=== PATIENT | male | born 1960 | race Caucasian/White ===

== ENCOUNTER 2018-12-17 16:15 | Observation (INO) | payer OTHER ==
[~2018-12-17] VITALS: Ht 172.7 cm; Wt 80.7 kg
--- NOTE | ~2018-12-17 | CON ---
[address] [address] CONSULTATION Name: ILIR QUINONES Room: [address] [place]#: [id number] Admission: 12/17/18 Attend Phys: Ric Richter MD Discharge: Date of : 64 Report #: [id number] THIS REPORT FOR: //name// CC: NANCY physician/PCP Ric Richter DATE OF SERVICE: 12/18/2018 HISTORY OF PRESENT ILLNESS: This is a 58-year-old male patient who was evaluated by me to determine any neurological etiology for the patient's syncope. I talked to Dr. Alston and he basically passed out the ambulance came after about 20 minutes according to him, but that time, he was up and back to his baseline. His blood sugar earlier during the day was 500. When they came in, it was 156, but that time, the patient was conscious and alert and in fact walked to the ambulance. REVIEW OF SYSTEMS: Indicate that he has pretty significant cardiac problems. He is a diabetic. He had multiple stents put in. His blood sugar fluctuates a lot. He indicates that even his vital signs fluctuate. Apparently, his blood pressure was low when it happened. He has trouble with vision in the right eye, which is his baseline. A 14-point review of system was carried out. He indicated that he does not have any history of stroke. He denies any ENT, respiratory, GI, , musculoskeletal, constitutional, dermatological, hematological, psychiatric, throat, allergic symptom associated with present symptomatology. He has baseline problem with the psychiatric issues. He is already on statin and aspirin. PAST MEDICAL HISTORY: Positive for cardiac problems. FAMILY HISTORY: Positive for cardiac problems. In fact, his father has stents put in this hospital a few days ago. SOCIAL HISTORY: He indicates he still smokes. PHYSICAL EXAMINATION: Indicates he is alert, responsive, able to follow simple and complex command. Cranial nerve examination 2-12 looks unremarkable except for his baseline vision problem. His strength, sensation, reflexes and tone is symmetrical, but his reflexes are diminished in the lower extremities as expected with diabetes. His pulses are somewhat difficult to feel. I could not look at the fundus. There is no meningeal sign. There is no carotid bruit. He is moderately built individual who does not have any dysmorphic features of eyes, ears and face. His cardiac examinations appear unremarkable. No respiratory difficulty was noticed. Blood pressure is 153/93, respirations 16, pulse is 81, temperature is 97.9. [place] [address] CONSULTATION Name: ILIR QUINONES Room: [address] MJamesR.#: [id number] Admission: 12/17/18 Attend Phys: Ric Richter MD Discharge: Date of : 64 Report #: [id number] LABORATORY DATA: His white count is 8.2 and his GFR is 48. He had an MRI of the brain and MRA of the head and neck done. That does not appear to be showing any definite abnormality. 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 IMPRESSION: Episode, he has, was most likely related to either uncontrolled blood sugar or change in his other vital sign. Neurological etiology is unlikely in this patient. I will do an EEG to further rule out any other etiology. If that is unremarkable, the emphasis should continue to be on determining systemic cause for the patient's symptom and following up on that. I discussed all of it with the patient and he understands it and he wants to follow this plan. By: 1013 1254Pdinora Rust MD /nt
--- NOTE | ~2018-12-17 | EEG ---
[address] [address] EEG STUDY REPORT Name: ILIR QUINONES Room: [address] [place]#: [id number] Admission: 12/17/18 Attend Phys: Ric Richter MD Discharge: Date of : 64 Report #: [id number] THIS REPORT FOR: //name// CC: FAM physician/PCP Ric Richter DATE OF SERVICE: 12/18/2018 This patient had an episode of syncope. This patient is being evaluated for syncope. EEG was done by placing the electrode by standard 10-20 system of electrode placement. Both referential and sequential montages were used for recording. Background activity in this patient's EEG is about 8-9 Hz and 30 microvolts. The patient became drowsy that is associated with bilateral slowing and vertex sharp waves. Photic stimulation is unremarkable. Throughout the record, no active epileptiform activity was noticed. IMPRESSION: This patient's electroencephalogram is intermixed with theta range slowing on both sides. That is a nonspecific finding, which can occur with drowsiness, effect of psychotropic medication, dementia, etc. No active epileptiform activity was noticed during this record. By: 1422 1434Pdinora Rust MD /nt
[~2018-12-17 16:15] MED LIST: CARVEDILOL12.5 MG PO; CELEBREX 200 M200 M1 PO; CYMBALTA60 MG PO; FELDENE20 MG PO; GABAPENTIN100 MG PO; HUMALOG100 UNIT/1 SQ; IBUPROFEN 800800 M1 PO; LAMICTAL PO; LAMICTAL XR300 MG PO; LAMOTRIGINE150 MG PO; LANTUS SQ; LIDODERM; LIDODERM 5%1 PATCH TOP; LIPITOR40 MG PO; LISINOPRIL20 MG PO; LITHIUM PO; NEURONTIN 300300 M1 PO; NEURONTIN 400400 M1 PO; NUCYNTA50 MG PO; ROBAXIN 750 MG750 M1 PO; SYNTHROID175 MCG PO; TRAZODONE 150150 M1 PO; ULTRAM 50MG TAB50 MG PO; ZIPSOR25 MG PO; neurontin PO
[2018-12-17 16:18] VITALS: BP 106/67
[2018-12-17 17:03] LABS: URINE BILIRUBIN NEGATIVE (Negative); URINE BLOOD NEGATIVE (Negative); URINE CLARITY CLEAR; URINE COLOR YELLOW; URINE GLUCOSE-RANDOM 3+ (Negative); URINE KETONES NEGATIVE (Negative); URINE LEUKOCYTES-REFLEX NEGATIVE (Negative); URINE NITRITE-REFLEX NEGATIVE (Negative); URINE PROTEIN TRACE (Negative); URINE SPECIFIC GRAVITY 1.015 (1.005-1.030); URINE UROBILINOGEN 0.2 E.U./dl (0.2-1.0)
[2018-12-17 17:05] LABS: BE -1.6 mmol/L (-2 to +3); PCO2 38.1 mmHg (35.0-45.0); PO2 87.8 mmHg (75.0-100.0); pH 7.396 (7.340-7.450)
[2018-12-17 17:25] LABS: ABSOLUTE BASOPHILS 0.1 thou/uL (0.0-0.2); ABSOLUTE EOSINOPHILS 0.5 thou/uL (0.0-0.7); ABSOLUTE LYMPHOCYTES 2.5 thou/uL (0.8-5.3); ABSOLUTE MONOCYTES 0.4 thou/uL (0.0-1.2); ABSOLUTE NEUTROPHILS 4.6 thou/uL (1.6-8.1); BASOPHILS 1.4 %; HEMATOCRIT 45.2 % (42.0-52.0); LYMPHOCYTES 30.8 %; MCH 32.7 pg (26.0-34.0); MCHC 33.3 g/dL (28.0-37.0); MCV 98.3 fL (80.0-100.0); MONOCYTES 5.4 %; MPV 9.1 fl. (7.2-11.1); NUCLEATED RBCS 0 /100WBC; PLATELET COUNT* 314 thou/uL (150-400); POLYS 56.4 %; RDW-CV 13.7 % (10.5-14.5); WBC 8.2 thou/uL (4.0-11.0)
[2018-12-17 17:33] LABS: CALCIUM 9.7 mg/dL (8.5-10.1); CREATININE 1.5 mg/dL (0.6-1.3); POTASSIUM 3.5 mmol/L (3.5-5.1)
[2018-12-17 17:37] LABS: ALBUMIN 4.1 g/dL (3.4-5.0); MAGNESIUM 2.1 mg/dL (1.8-2.4); TOTAL BILIRUBIN 0.6 mg/dL (<0.1-1.0); TOTAL PROTEIN 7.8 g/dL (6.4-8.2)
[2018-12-17 18:40] LABS: PROTIME 10.1 Seconds (9.20-11.50)
[2018-12-17 18:47] VITALS: BP 114/69
[2018-12-17 18:50] VITALS: BP 117/71
[2018-12-17 18:53] VITALS: BP 114/69
--- NOTE | 2018-12-17 19:13 | NUR ---
RECEIVED REPORT FROM ER AT 1850. AOX4, SBA, O2 SAT 90'S RA.TELE INPLACED, TRACING SINUS DARELL. GET SITUATED TO ROOM. FOR ACCU CHECK. VSS, GIVE REPORT TO AMISHA RN. CALL LIGHT WITHIN REACH. WILL CONTINUE TO MONITOR.
[2018-12-17 19:50] VITALS: BP 126/72
[2018-12-17 23:26] VITALS: BP 162/91
[2018-12-17] MEDS ORDERED: PLAVIX 75 MG TA75 M1 PO (23:31)
[2018-12-18 04:00] VITALS: BP 170/90
[2018-12-18 05:00] VITALS: BP 153/83
[2018-12-18] MEDS ORDERED: SYNTHROID200 MCG PO (06:21)
[2018-12-18] MEDS ORDERED: HUMALOG100 UNIT/1 SUBQ (06:23)
[2018-12-18] MEDS ORDERED: LITHIUM CARBON300 M6 PO (06:24)
[2018-12-18] MEDS ORDERED: COREG6.25 MG PO (06:25)
[2018-12-18] MEDS ORDERED: HYDROXYZINE HCL25 M1 PO (06:26)
--- NOTE | 2018-12-18 06:35 | NUR ---
NO ACUTE CHANGES OVERNIGHT. PATIENT'S HEADACHE RELIEVED WITH ACETAMINOPHEN. PATIENT DENIES LIGHTHEADEDNESS OR DIZZINESS. PATIENT DENIES CONCERNS OR QUESTIONS AT THIS TIME. MEDICATIONS RECONCILLED WITH [facility] AND UPDATED IN SYSTEM. PER DR. SCHMID, HOME MEDICATIONS WILL BE REVIEWED TODAY. CALL LIGHT WITHIN REACH
[2018-12-18 08:00] VITALS: BP 169/83
--- NOTE | 2018-12-18 08:58 | NUR ---
ASSUMED CARE OF PT THIS AM AROUND 0715- CARDAI MONITOR IN PLACE ORDERED, TRACING SR- UPON ASSESSMENT PT NOTED TO BE RESTING IN BED, WATCHING TV- PT A&O X4- CONTINENT OF BOWEL AND BLADDER- SBA WITH TRANSFERS FOR SAFETY- LCTA, RESP EVEN AND UN-LABORED- VSS, O2 SAT 96% ON RA- ABD SOFT/ROUND/NON-TENDER, BS X4 QUADS- LAST BM REPORTED 12/17/18- IV NOTED TO RIGHT AC INTACT AND SL- GOOD PO INTAKE NOTED THIS AM WITH BREAKFAST, BS MONITORED ORDERED WITH SCHEDULED AND SSI PRESCIBED- PT DENIES ANY C/O PAIN/DISCOMFORT AT THIS TIME- CALL LIGHT AND PERSONAL BELONGINGS WITH IN REACH- HOURLY ROUNDS IN PLACE R/T SAFETY/NEEDS- ALL NEEDS MET AT THIS TIME-WCTM
[2018-12-18 09:16] VITALS: BP 144/89; BP 153/93; BP 157/79
--- NOTE | 2018-12-18 10:58 | EKG ---
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 12/18/18 1058 1627 1627 Jacques Medina MD, [facility] /EPI
[2018-12-18 11:31] VITALS: BP 153/93
[2018-12-18 12:08] VITALS: BP 136/80
--- NOTE | 2018-12-18 12:54 | 2DMMODE ---
[place] [address] 2 D/M-MODE ECHOCARDIOGRAM Name: ILIR QUINONES Elkin Room: [address] [place]#: [id number] Admission: 12/17/18 Attend Phys: Ric Richter, Discharge: Date of : 64 Date of Service: 12/18/18 1254 Report #: [id number] THIS REPORT FOR: //name// APPROVED REPORT Study performed: 12/18/2018 11:14:21 EXAM: Comprehensive 2D, Doppler, and color-flow Echocardiogram Patient Location: In-Patient Room #: 224 Status: routine BSA: 1.94 HR: 51 bpm BP: 157/79 mmHg Rhythm: NSR Other Information Study Quality: Good Indications Arrhythmia Syncope 2D Dimensions IVSd: 10.02 (7-11mm) LVOT Diam: 20.29 (18-24mm) LVDd: 38.44 mm PWd: 9.14 (7-11mm) Ascending Ao: 31.81 (22-36mm) LVDs: 22.95 (25-40mm) Aortic Root: 32.57 mm Volumes Left Atrial Volume (Systole) LA ESV Index: 20.80 mL/m2 Aortic Valve AoV Peak Contreras.: 1.11 m/s AO Peak Gr.: 4.95 mmHg LVOT Max P.40 mmHg AO Mean Gr.: 2.69 mmHg LVOT Mean P.60 mmHg LVOT Max V: 0.92 m/s AO V2 VTI: 23.08 cm LVOT Mean V: 0.57 m/s KATERINE (VTI): 3.29 cm2 LVOT V1 VTI: 23.48 cm Mitral Valve E/A Ratio: 0.65 MV Decel. Time: 197.38 [place] [address] 2 D/M-MODE ECHOCARDIOGRAM Name: ILIR QUINONES Room: [address] MJamesRJames#: [id number] Admission: 12/17/18 Attend Phys: Ric Richter, Discharge: Date of : 64 Date of Service: 12/18/18 1254 Report #: [id number] MV E Max Contreras.: 0.56 m/s MV PHT: 57.24 ms MVA (PHT): 3.84 cm2 TDI E/Lateral E': 8.00 E/Medial E': 8.00 Medial E' Contreras.: 0.07 m/s Lateral E' Contreras.: 0.07 m/s Pulmonary Valve PV Peak Contreras.: 0.72 m/s PV Peak Gr.: 2.04 mmHg Tricuspid Valve RAP Estimate: 5.00 mmHg TR Peak Gr.: 16.93 mmHg RVSP: 21.00 mmHg PA Pressure: 21.00 mmHg Left Ventricle The left ventricle is normal size. There is normal LV segmental wall motion. There is normal left ventricular wall thickness. Left ventricular systolic function is normal. LVEF is 60-65%. Grade I - abnormal relaxation pattern. Right Ventricle Right ventricle is mildly dilated. The right ventricular systolic function is normal. Atria The left atrium size is normal. Right atrium is mildly dilated. Aortic Valve The aortic valve is normal in structure. No aortic regurgitation is present. There is no aortic valvular stenosis. Mitral Valve The mitral valve is normal in structure. Trace mitral regurgitation. No evidence of mitral valve stenosis. Tricuspid Valve The tricuspid valve is normal in structure. Mild tricuspid regurgitation. No pulmonary hypertension. Pulmonic Valve The pulmonary valve is normal in structure. There is no pulmonic [place] [address] 2 D/M-MODE ECHOCARDIOGRAM Name: ILIR QUINONES El[place] Room: [address]#: [id number] Admission: 12/17/18 Attend Phys: Ric Richter, Discharge: Date of : 64 Date of Service: 12/18/18 1254 Report #: [id number] Great Vessels The aortic root is normal in size. The inferior vena cava is not well visualized. Pericardium There is no pericardial effusion. <Conclusion> The left ventricle is normal size. There is normal left ventricular wall thickness. Left ventricular systolic function is normal. LVEF is 60-65%. Grade I - abnormal relaxation pattern. Right atrium is mildly dilated. Right ventricle is mildly dilated. Trace mitral regurgitation. Mild tricuspid regurgitation. No pulmonary hypertension. <ELECTRONICALLY SIGNED> By: Jacques Medina MD, FACC 12/18/18 1254 1254 1254 Jacques Medina MD, FACC /INF
--- NOTE | 2018-12-18 14:34 | NUR ---
MET WITH PT TO DISCUSS HOME SITUATION/DC PLANNING. PT LIVES WITH PARENTS. JUST MOVED BACK TO THIS AREA FROM [place]. HE IS IN PROCESS OF GETTING ALL OF HIS INFO CHANGED OVER AND IS WORKING ON GETTING HIS MEDICAID CHANGED. NUMBER TO CALL GIVEN TO PT. PT IS INDEPENDENT, USES NO EQUIPMENT. ORDER RECEIVED TO SET UP 30 DAY EVENT MONTIOR. PT PLANS TO F/U WITH DR DUMAS HE HAS SEEN HIM IN PAST, DR SCHMID UPDATED THAT PT WILL NEED TO RETURN TO PRIOR TO BEING ABLE TO GET THAT DR TO ARRANGE EVENT MONITOR. CALL TO DR DUMAS'S OFFICE, SPOKE WITH RC. WAS ABLE TO SET UP APPT AND REQUEST THE MONITOR. PT HAS APPT 12/25, FAXED CLINICAL AND ORDER FOR EVENT MONTIOR TO DR DUMAS'S OFFICE. UPDATED MISA MONTERO AND SHE WILL RELAY INFO TO PT
--- NOTE | 2018-12-18 14:41 | NUR ---
ORDERS RECIEVIED FRO OKAY TO D/C TO HOME PER WITH NEEDED FOLLOW UP WITH PCP/PYCH FOR REPEAT ECG AND LITHIUM DIRECTIONS- CM HERE TO SET UP WITH PCP PRIOR TO D/C FOR PT TO HAVE 30 DAY MONITOR PLACED OP WELL- IV TO RIGHT AC D/C'D ALONG WITH HI RANGER OPERATOR PRIOR TO D/C- D/C TEACHING/EDUCATION/NEEDED FOLLOW UP'S COMMUNICATED WITH CINDY UNDERSTANDING RECEIEVIED PER PT PRIOR TO D/C- ALL QUESTIONS AND CONCERNS ADDRESSED PRIOR TO D/C- BELONGINGS PACKED AND ACCOUNTED FOR PER PT PRIOR TO D/C- PT ESCORTED PER VOLUNTEER VIA AMB TO VEHICLE WITH BELONGINGS; FAMILY AT SIDE AT 1445- NO PROBLEMS TO NOTE AT TIME OF D/C
--- NOTE | 2018-12-18 15:34 | EKG ---
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
== END 2018-12-18 14:45 | disposition home or self-care (01) ==
LOC: M.ERS 16:15 → M.2W 18:13 → M.TBA-ER 18:13 → M.2W 18:13
PROVIDERS: Personal Emergency Response Attendant; ADMIT Internal Medicine
DX: R55 Syncope and collapse (principal); E10.649 Type 1 diabetes mellitus with hypoglycemia without coma; I45.81 Long QT syndrome; F33.9 Major depressive disorder, recurrent, unspecified; E03.9 Hypothyroidism, unspecified; I95.9 Hypotension, unspecified; E10.22 Type 1 diabetes mellitus with diabetic chronic kidney disease; N18.3 Chronic kidney disease, stage 3 (moderate); F17.210 Nicotine dependence, cigarettes, uncomplicated; I25.10 Atherosclerotic heart disease of native coronary artery without angina pectoris; Z88.5 Allergy status to narcotic agent; Z86.73 Personal history of transient ischemic attack (TIA), and cerebral infarction without residual deficits; Z88.8 Allergy status to other drugs, medicaments and biological substances; Z95.5 Presence of coronary angioplasty implant and graft; Z79.84 Long term (current) use of oral hypoglycemic drugs

== ENCOUNTER 2019-10-29 19:10 | Inpatient (IN) | payer MEDICAID ==
[~2019-10-29] VITALS: Ht 172.7 cm; Wt 89.4 kg
[~2019-10-29 19:10] MED LIST changes: +COREG6.25 MG PO; +HUMALOG100 UNIT/1 SUBQ; +HYDROXYZINE HCL25 M1 PO; +LITHIUM CARBON300 M6 PO; +PLAVIX 75 MG TA75 M1 PO; +SYNTHROID200 MCG PO
[2019-10-29 19:14] VITALS: BP 132/95
[2019-10-29] MEDS ORDERED: LITE COAT ASPI325 MG PO (19:27)
[2019-10-29] MEDS ORDERED: BACLOFEN20 MG PO (19:28)
[2019-10-29] MEDS ORDERED: BUSPIRONE HCL10 MG PO (19:28)
[2019-10-29] MEDS ORDERED: TIROSINT100 MCG PO (19:29)
[2019-10-29] MEDS ORDERED: CARVEDILOL25 MG PO (19:30)
[2019-10-29] MEDS ORDERED: LAMOTRIGINE250 MG PO (19:30)
[2019-10-29] MEDS ORDERED: HYDROXYZINE HCL25 M2 PO (19:31)
[2019-10-29] MEDS ORDERED: DRIZALMA SPRINK60 MG PO (19:31)
[2019-10-29] MEDS ORDERED: GLUCOSE BITS1 GM PO (19:32)
[2019-10-29 20:22] LABS: ABSOLUTE BASOPHILS 0.1 thou/uL (0.0-0.2); ABSOLUTE EOSINOPHILS 0.1 thou/uL (0.0-0.7); ABSOLUTE MONOCYTES 1.2 thou/uL (0.0-1.2); ABSOLUTE NEUTROPHILS 10.1 thou/uL (1.6-8.1); BASOPHILS 0.6 %; HEMATOCRIT 39.2 % (42.0-52.0); HEMOGLOBIN 13.4 gm/dL (14.0-18.0); MCH 33.2 pg (26.0-34.0); MCHC 34.2 g/dL (28.0-37.0); MCV 96.9 fL (80.0-100.0); MONOCYTES 8.6 %; MPV 8.4 fl. (7.2-11.1); NUCLEATED RBCS 0 /100WBC; PLATELET COUNT* 357 thou/uL (150-400); POLYS 74.8 %; RBC 4.04 mil/uL (4.50-6.00); RDW-CV 15.2 % (10.5-14.5); WBC 13.6 thou/uL (4.0-11.0)
[2019-10-29 20:22] LABS: URINE BLOOD 3+ (Negative); URINE CLARITY CLEAR; URINE COLOR YELLOW; URINE GLUCOSE-RANDOM NEGATIVE (Negative); URINE KETONES NEGATIVE (Negative); URINE LEUKOCYTES-REFLEX NEGATIVE (Negative); URINE NITRITE-REFLEX NEGATIVE (Negative); URINE PROTEIN 1+ (Negative); URINE SPECIFIC GRAVITY >= 1.030 (1.005-1.030); URINE UROBILINOGEN 0.2 E.U./dl (0.2-1.0)
[2019-10-29 20:27] LABS: ICTOTEST (BILI CONFIRMATORY) Negative (Negative); URINE BILIRUBIN 1+ (Negative)
[2019-10-29 20:30] LABS: AMP/METHAMP POSITIVE (Negative); BARBITURATES Negative (Negative); BENZODIAZEPINES Negative (Negative); COCAINE Negative (Negative); METHADONE Negative (Negative); OPIATES Negative (Negative); PCP Negative (Negative); THC POSITIVE (Negative)
[2019-10-29 20:31] LABS: CALCIUM 9.2 mg/dL (8.5-10.1); CREATININE 3.3 mg/dL (0.6-1.3)
[2019-10-29 20:35] LABS: PROTIME 10.2 Seconds (9.20-11.50)
[2019-10-29 20:36] LABS: SQUAMOUS 0-3 Few /LPF (0-3); URINE WBC-REFLEX 0-5 Rare /HPF (0-5)
[2019-10-29 20:38] LABS: URINE RBC 3-10 Few /HPF (0-2)
[2019-10-29 20:39] LABS: BACTERIA-REFLEX 1-9 Few /HPF (None Seen); MUCUS 0-3 Light strn/LPF (None Seen)
[2019-10-29 20:40] LABS: CRYSTALS None Seen /LPF (None Seen); FINE GRANULAR CASTS 0-3 Few /LPF (None Seen); HYALINE CASTS >10 Many /LPF (None Seen)
[2019-10-29 20:42] LABS: ALBUMIN 3.9 g/dL (3.4-5.0); MAGNESIUM 2.2 mg/dL (1.8-2.4); TOTAL BILIRUBIN 0.9 mg/dL (<0.1-1.0); TOTAL PROTEIN 7.9 g/dL (6.4-8.2)
[2019-10-30 00:22] VITALS: BP 121/68
[2019-10-30] MEDS ORDERED: KEFLEX500 M2 PO (02:43)
[2019-10-30 03:40] VITALS: BP 117/61
[2019-10-30 08:00] VITALS: BP 104/73
[2019-10-30 11:49] VITALS: BP 117/69
--- NOTE | 2019-10-30 14:13 | EKG ---
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[place] : 1960 Requested By: Mary Grace Hanson Order Number: [id number] MD: Khari Abdullahi Measurements Intervals [place] Rate: 61 P: 77 [place]: 152 QRS: 66 QRSD: 114 T: 74 QT: 525 QTc: 529 Interpretive Statements Sinus rhythm Borderline intraventricular conduction delay Prolonged QT interval Compared to ECG 12/18/2018 13:59:56 rate increased Electronically Signed On 10-30-2019 14:11:17 CDT by Khari Abdullahi [email or web address] <ELECTRONICALLY SIGNED> By: Khari Abdullahi MD, [facility] 10/30/19 1411 27 27 Khari Abdullahi MD, [facility] /EPI
[2019-10-30 16:05] VITALS: BP 146/69
[2019-10-30 17:02] LABS: CALCIUM 8.8 mg/dL (8.5-10.1); MAGNESIUM 2.1 mg/dL (1.8-2.4); POTASSIUM 3.5 mmol/L (3.5-5.1)
[2019-10-30 17:09] LABS: CREATININE 1.4 mg/dL (0.6-1.3)
[2019-10-31] VITALS: BP 152/83
[2019-10-31 04:00] VITALS: BP 164/87
[2019-10-31 04:34] LABS: CALCIUM 8.2 mg/dL (8.5-10.1); CREATININE 1.2 mg/dL (0.6-1.3); MAGNESIUM 1.9 mg/dL (1.8-2.4); POTASSIUM 3.5 mmol/L (3.5-5.1)
[2019-10-31 08:00] VITALS: BP 162/70
[2019-10-31 11:56] VITALS: BP 157/82
[2019-10-31 15:59] VITALS: BP 156/84
[2019-10-31 20:00] VITALS: BP 150/76
[2019-11-01] VITALS: BP 153/79
[2019-11-01 04:00] VITALS: BP 174/81
[2019-11-01 04:41] LABS: HEMATOCRIT 38.9 % (42.0-52.0); MCH 32.6 pg (26.0-34.0); MCHC 33.6 g/dL (28.0-37.0); MPV 8.3 fl. (7.2-11.1); RBC 4.01 mil/uL (4.50-6.00); RDW-CV 15.9 % (10.5-14.5); WBC 10.7 thou/uL (4.0-11.0)
[2019-11-01 04:53] LABS: CALCIUM 8.6 mg/dL (8.5-10.1); CREATININE 1.1 mg/dL (0.6-1.3); MAGNESIUM 1.7 mg/dL (1.8-2.4); POTASSIUM 3.8 mmol/L (3.5-5.1)
[2019-11-01 08:00] VITALS: BP 174/85
[2019-11-01 12:00] VITALS: BP 175/80
[2019-11-01 12:09] VITALS: BP 174/85
== END 2019-11-01 12:55 | disposition home or self-care (01) | DRG 638 ==
LOC: M.ERS 19:10 → M.2W 10-30 00:06 → M.TBA-ER 10-30 00:06 → M.2W 10-30 00:54
PROVIDERS: Emergency Medicine; Internal Medicine; ADMIT Internal Medicine
DX: E10.649 Type 1 diabetes mellitus with hypoglycemia without coma (principal); M62.82 Rhabdomyolysis; E10.22 Type 1 diabetes mellitus with diabetic chronic kidney disease; G92 Toxic encephalopathy; N17.9 Acute kidney failure, unspecified; N18.4 Chronic kidney disease, stage 4 (severe); E03.9 Hypothyroidism, unspecified; I25.10 Atherosclerotic heart disease of native coronary artery without angina pectoris; F31.9 Bipolar disorder, unspecified; E10.65 Type 1 diabetes mellitus with hyperglycemia; F12.90 Cannabis use, unspecified, uncomplicated; F10.10 Alcohol abuse, uncomplicated; E86.9 Volume depletion, unspecified; T38.3X5A Adverse effect of insulin and oral hypoglycemic [antidiabetic] drugs, initial encounter; T43.625A Adverse effect of amphetamines, initial encounter; F19.10 Other psychoactive substance abuse, uncomplicated; Z90.81 Acquired absence of spleen; Z95.5 Presence of coronary angioplasty implant and graft; Z88.6 Allergy status to analgesic agent; Z91.041 Radiographic dye allergy status; Y92.89 Other specified places as the place of occurrence of the external cause